=== PATIENT | female | born 1945 | race Caucasian/White ===

== ENCOUNTER 2016-03-12 08:57 | Emergency (ER) | payer MEDICARE, BC ==
[2016-03-12 09:14] VITALS: BP 123/56
--- NOTE | 2016-03-12 09:43 | UC ---
Back Pain HPI - HPI Summary HPI Summary: CHRONIC LOWER BACK PAIN X 40 YEARS GETTING WORSE OVER THE PAST 2 WEEKS, NO KNOWN INJURY, NO RADIATION OF THE PAIN , INCREASE PAIN WITH MOVEMENT NO NAUSEA, VOMITING, NO URINARY SX. - History of Current Complaint Chief Complaint: UCBackPain Stated Complaint: BACK PAIN Time Seen by Provider: 03/12/16 09:12 Hx Obtained From: Patient Hx Last Menstrual Period: age 51 ?: No Onset/Duration: Gradual Onset, Lasting Weeks, Still Present, Worse Since - PAST 2 WEEKS Timing: Constant Severity Initially: Severe Severity Currently: Severe Back Pain: Is Discrete @ - LOWER BACK Character: Aching, Throbbing, Spasmodic, Stiffness Aggravating: Movement, Lifting, Bending, Walking, Cough Alleviating: Nothing Associated Signs And Symptoms: Negative: Swelling, Redness, Bruising, Fever, Weakness, Numbness, Tingling, Abdominal Pain, Flank Pain, Bladder Incontinence, Bowel Incontinence, Weight Loss - Allergies/Home Medications Allergies/Adverse Reactions: Allergies Allergy/AdvReac Type Severity Reaction Status Date / Time Adhesive Tape Allergy RED RASH Verified 03/12/16 09:14 AVOCODOS Allergy Vomiting Uncoded 03/12/16 09:14 BROCCOLI Allergy Vomiting Uncoded 03/12/16 09:14 CANTALOUPE Allergy Vomiting Uncoded 03/12/16 09:14 EGGPLANT Allergy Vomiting Uncoded 03/12/16 09:14 PET DANDER Allergy BREATHING, Uncoded 03/12/16 09:14 SINUS, RUNNY EYES, ASTHMA SX raw honey Allergy VIOLENT Uncoded 03/12/16 09:14 VOMITING, CRAMPS, SENSITIVE TO ANESTHESIA Allergy SENSITIVE Uncoded 03/12/16 09:14 TO AMOUNT SHELLFISH Allergy VIOLENT Uncoded 03/12/16 09:14 VOMITING Home Medications: Home Medications Turmeric (Curcuma Longa) [Turmeric] 450 mg PO DAILY 03/12/16 [History Confirmed 03/12/16] PMH/Surg Hx/FS Hx/Imm Hx Endocrine History Of: Reports: Diabetes - TYPE 2, Thyroid Disease Cardiovascular History Of: Reports: Cardiac Disorders - heart murmur, Hypertension - CONTROL WITH MEDS Denies: Congestive Heart Failure Respiratory History Of: Reports: Asthma - allergy induced (PET DANDER) GI/ History Of: Denies: Renal Disease Psychological History Of: Reports: Anxiety - HX, Depression - HX-AFTER MOTHER IN 2011 - Surgical History Surgical History: Yes Surgery Procedure, Year, and Place: 1971 TONSILLECTOMY,. 1976, 1978-[place] [place] [facility] [place]OM[place]- LEFT, [facility]. 2012-PARATHYROIDECTOMY, [facility]. 2013 REPAIR OF "BOTCHED" SURGERY ON PARATHYROID, (THYROPLASTY IMPLANT TYPE 1[place] [facility] [place] Family History Known Family History: Positive: Diabetes - Social History Alcohol Use: Rare Substance Use Type: None Smoking Status (MU): Former Smoker Amount Used/How Often: 0.5-.75 PPD 25-30 YEARS When Did the Patient Quit Smoking/Using Tobacco: 2002 Review of Systems Constitutional: Negative Skin: Negative Eyes: Negative ENT: Negative Respiratory: Negative Cardiovascular: Negative Gastrointestinal: Negative Musculoskeletal: Myalgia All Other Systems Reviewed And Are Negative: Yes Physical Exam Triage Information Reviewed: Yes Appearance: Well-Appearing, No Pain Distress, Well-Nourished Vital Signs: Initial Vital Signs Temp 98.5 F 03/12/16 09:06 Pulse 64 03/12/16 09:06 Resp 18 03/12/16 09:06 BP 123/56 03/12/16 09:06 Vital Signs Reviewed: Yes Eyes: Positive: Conjunctiva Clear ENT: Positive: Normal ENT inspection, Hearing grossly normal, Pharynx normal Neck: Positive: Supple, Nontender, No Lymphadenopathy Respiratory: Positive: Chest non-tender, Lungs clear, Normal breath sounds Cardiovascular: Positive: RRR, No Murmur, Pulses Normal Abdominal Exam: Normal Abdomen Description: Positive: Soft. Negative: CVA Tenderness (R), CVA Tenderness (L), Distended, Guarding Bowel Sounds: Positive: Present Musculoskeletal: Positive: Other: - LOWER BACK PAIN : NO SWELLING, NO ERYTHEMA, NO TENDERNESS, LIMITED R/O ON FLEXION , SEVER PAIN WITH FLEXION, GOOD STRENGTH, Back Pain Course/Dx - Course Course Of Treatment: PT. IS TAKING NAPOXYN WITH MINIMAL HELP. DOEST NOT WANT ANY PAIN MEDS OR ANY MUSCLE RELAXANT. PT. WANT A REFERRAL TO [facility] FOR EVAL. - Differential Dx/Diagnosis Provider Diagnoses: LOWER BACK PAIN Discharge - Discharge Plan Condition: Stable Disposition: HOME Patient Education Materials: Chronic Back Pain (ED), Lower Back Exercises (ED) Referrals: Pratik Palmer MD [Medical Doctor] - As Soon As Possible Pranav Armenta MD [Primary Care Provider] -
== END 2016-03-12 10:15 | disposition home or self-care (01) ==
LOC: UCCORT 08:57
DX: M54.5 Low back pain (principal); E11.9 Type 2 diabetes mellitus without complications; E07.9 Disorder of thyroid, unspecified; J45.909 Unspecified asthma, uncomplicated; F41.9 Anxiety disorder, unspecified; Z87.891 Personal history of nicotine dependence; Z13.220 Encounter for screening for lipoid disorders
CPT/HCPCS: 36415; 80053; 80061; 83036; 83721; 84443; 85027; 87086; 99212; G0463

== ENCOUNTER 2016-06-30 07:37 | Emergency (ER) | payer MEDICARE, BC ==
[2016-06-30 07:44] VITALS: BP 146/63
--- NOTE | 2016-06-30 08:16 | UC ---
Respiratory Complaint HPI - HPI Summary HPI Summary: 71 YO FEMALE WITH DM PRESENTS WITH A THREE DAY HX OF "WHEEZING" NO F/C NO PRODUCTIVE COUGH NO GOMEZ OR MYALGIAS NO RUNNY NOSE HAS CHEST PRESSURE RECENTLY FLEW BACK FROM [place] - History of Current Complaint Chief Complaint: UCRespiratory Stated Complaint: COUGH,WHEEZING Time Seen by Provider: 06/30/16 08:06 Hx Obtained From: Patient Hx Last Menstrual Period: age 51 Onset/Duration: Gradual Onset, Lasting Days - 3 Severity Initially: Mild Severity Currently: Moderate Pain Intensity: 0 Pain Scale Used: 0-10 Numeric Character: Cough: Nonproductive Aggravating Factors: Nothing Alleviating Factors: Nothing Associated Signs And Symptoms: Positive: Wheezing Related History: Similar Episode/Dx as: - Allergies/Home Medications Allergies/Adverse Reactions: Allergies Allergy/AdvReac Type Severity Reaction Status Date / Time Adhesive Tape Allergy RED RASH Verified 06/30/16 07:44 AVOCODOS Allergy Vomiting Uncoded 06/30/16 07:44 BROCCOLI Allergy Vomiting Uncoded 06/30/16 07:44 CANTALOUPE Allergy Vomiting Uncoded 06/30/16 07:44 EGGPLANT Allergy Vomiting Uncoded 06/30/16 07:44 PET DANDER Allergy BREATHING, Uncoded 06/30/16 07:44 SINUS, RUNNY EYES, ASTHMA SX raw honey Allergy VIOLENT Uncoded 06/30/16 07:44 VOMITING, CRAMPS, SENSITIVE TO ANESTHESIA Allergy SENSITIVE Uncoded 06/30/16 07:44 TO AMOUNT SHELLFISH Allergy VIOLENT Uncoded 06/30/16 07:44 VOMITING PMH/Surg Hx/FS Hx/Imm Hx Endocrine History Of: Reports: Diabetes - TYPE 2, Thyroid Disease Cardiovascular History Of: Reports: Cardiac Disorders - heart murmur, Hypertension - CONTROL WITH MEDS Denies: Congestive Heart Failure Respiratory History Of: Reports: Asthma - allergy induced (PET DANDER) GI/ History Of: Denies: Renal Disease Psychological History Of: Reports: Anxiety - HX, Depression - HX-AFTER MOTHER IN 2011 - Surgical History Surgical History: Yes Surgery Procedure, Year, and Place: 1971 TONSILLECTOMY,. 1976, 1978-2 C- [place] [place] 2007 DEVIATED SEPTUM REPAIR, [facility] [place] 2008-BUNIONECTOMY- LEFT, [facility]. 2012-PARATHYROIDECTOMY, [facility]. 2013 REPAIR OF "BOTCHED" SURGERY ON PARATHYROID, (THYROPLASTY IMPLANT TYPE 1), [facility] [place] - Family History Known Family History: Positive: Hypertension, Diabetes - Social History Alcohol Use: None Substance Use Type: None Smoking Status (MU): Former Smoker Amount Used/How Often: 0.5-.75 PPD 25-30 YEARS When Did the Patient Quit Smoking/Using Tobacco: 2002 Review of Systems Constitutional: Negative Skin: Negative Eyes: Negative ENT: Negative Respiratory: Cough Cardiovascular: Chest Pain - "PRESSURE" Gastrointestinal: Negative Genitourinary: Negative Motor: Negative Neurovascular: Negative Musculoskeletal: Negative Neurological: Negative Psychological: Negative All Other Systems Reviewed And Are Negative: Yes Physical Exam Triage Information Reviewed: Yes Appearance: Well-Appearing, No Pain Distress, Well-Nourished Vital Signs: Initial Vital Signs Temp 98.8 F 06/30/16 07:39 Pulse 71 06/30/16 07:39 Resp 18 06/30/16 07:39 BP 146/63 06/30/16 07:39 Pulse Ox 98 06/30/16 07:39 Eye Exam: Normal Eyes: Positive: Conjunctiva Clear ENT: Positive: Hearing grossly normal, TMs normal. Negative: Nasal congestion, Nasal drainage, Tonsillar exudate, Trismus, Muffled/hoarse voice Neck: Positive: Supple, Nontender, No Lymphadenopathy Respiratory: Positive: Lungs clear, Normal breath sounds, No respiratory distress, No accessory muscle use Cardiovascular: Positive: RRR, No Murmur. Negative: Tachycardia, Bradycardia Musculoskeletal: Positive: ROM Intact, No Edema Neurological: Positive: Alert Skin Exam: Normal UC Diagnostic Evaluation - Laboratory O2 Sat by Pulse Oximetry: 98 - NORMAL/NOT HYPOXIC - Radiology Xray Interpretation: No Acute Changes Radiology Interpretation Completed By: Radiologist - EKG Cardiac Rate: NL Cardiac Rhythm: Sinus: Normal Ectopy: None ST Segment: Normal Respiratory Course/Dx - Differential Dx/Diagnosis Provider Diagnoses: acute bronchitis Discharge - Discharge Plan Condition: Stable Disposition: HOME Prescriptions: Albuterol HFA INHALER* [Ventolin HFA Inhaler*] 2 puff INH QID #1 mdi Amoxicillin (*) [Amoxicillin 875 MG (*)] 875 mg PO BID #20 tab Patient Education Materials: Acute Bronchitis (ED) Referrals: Dominique Bernabe MD [Primary Care Provider] - Additional Instructions: recheck for new or worsening symptoms get rechecked especially for chest pain or shortness of breath recheck in 3-4 days if not better
--- NOTE | 2016-06-30 09:01 | RAD ---
INDICATION: Wheezing, shortness of breath, cough. Symptoms began after traveling 5 days ago. COMPARISON: May 03, [address] February 28, 2015 chest radiograph. TECHNIQUE: Dual energy PA and routine lateral views of the chest were obtained. REPORT: Elevated lung volumes with increased AP thoracic diameter. Minimal prominence of the interstitial markings without change. No alveolar consolidation, focal pulmonary lesion, pleural effusion, pneumothorax. The heart, pulmonary vasculature, and mediastinal contours are unremarkable. IMPRESSION: Stigmata of probable chronic obstructive pulmonary disease. No acute cardiopulmonary process evident.
== END 2016-06-30 09:20 | disposition home or self-care (01) ==
LOC: UCCORT 07:37
DX: J20.9 Acute bronchitis, unspecified (principal); I10 Essential (primary) hypertension; R01.1 Cardiac murmur, unspecified; J45.909 Unspecified asthma, uncomplicated; F41.9 Anxiety disorder, unspecified; E11.9 Type 2 diabetes mellitus without complications; Z79.4 Long term (current) use of insulin; E07.9 Disorder of thyroid, unspecified; Z87.891 Personal history of nicotine dependence; Z91.09 Other allergy status, other than to drugs and biological substances; Z91.018 Allergy to other foods; Z88.4 Allergy status to anesthetic agent; Z91.013 Allergy to seafood; Z88.8 Allergy status to other drugs, medicaments and biological substances; Z91.048 Other nonmedicinal substance allergy status
CPT/HCPCS: 71020; 93005; 99212; G0463

== ENCOUNTER 2016-07-20 15:23 | Emergency (ER) | payer BC, MEDICARE ==
[2016-07-20 17:17] VITALS: BP 135/58
--- NOTE | 2016-07-20 17:51 | UC ---
Respiratory Complaint HPI - HPI Summary HPI Summary: COUGH TWO WEEKS AGO, TOOK AMOXICILLIN AND SYMPTOMS IMPROVED, THREE DAYS AGO ( AFTER FINISHING ANTIBIOTIC REGIMENT) SYMPTOMS RETURNED. NO FEVERS (BUT DOES NOT CHECK TEMPERATURES). NO ABDOMINAL PAIN. NO RASHES. - History of Current Complaint Chief Complaint: UCGeneralIllness Stated Complaint: COUGH Time Seen by Provider: 07/20/16 17:26 Hx Obtained From: Patient Hx Last Menstrual Period: age 51 Onset/Duration: Gradual Onset, Lasting Weeks, Still Present Timing: Constant Severity Initially: Mild Severity Currently: Moderate Pain Intensity: 4 Pain Scale Used: 0-10 Numeric Character: Cough: Nonproductive Aggravating Factors: Recumbent Position Associated Signs And Symptoms: Positive: URI, Hoarseness. Negative: Fever, Chills, Pleuritic Chest Pain, Calf Pain, Calf Swelling - Risk Factors Pulmonary Embolism Risk Factors: Negative Cardiac Risk Factors: Negative Pseudomonas Risk Factors: Negative Tuberculosis Risk Factors: Negative - Allergies/Home Medications Allergies/Adverse Reactions: Allergies Allergy/AdvReac Type Severity Reaction Status Date / Time Adhesive Tape Allergy RED RASH Verified 07/20/16 17:17 AVOCODOS Allergy Vomiting Uncoded 07/20/16 17:17 BROCCOLI Allergy Vomiting Uncoded 07/20/16 17:17 CANTALOUPE Allergy Vomiting Uncoded 07/20/16 17:17 EGGPLANT Allergy Vomiting Uncoded 07/20/16 17:17 PET DANDER Allergy BREATHING, Uncoded 07/20/16 17:17 SINUS, RUNNY EYES, ASTHMA SX raw honey Allergy VIOLENT Uncoded 07/20/16 17:17 VOMITING, CRAMPS, SENSITIVE TO ANESTHESIA Allergy SENSITIVE Uncoded 07/20/16 17:17 TO AMOUNT SHELLFISH Allergy VIOLENT Uncoded 07/20/16 17:17 VOMITING PMH/Surg Hx/FS Hx/Imm Hx Previously Healthy: Yes Endocrine History Of: Reports: Diabetes - TYPE 2, Thyroid Disease Cardiovascular History Of: Reports: Cardiac Disorders - heart murmur, Hypertension - CONTROL WITH MEDS Denies: Congestive Heart Failure Respiratory History Of: Reports: Asthma - allergy induced (PET DANDER) GI/ History Of: Denies: Renal Disease Psychological History Of: Reports: Anxiety - HX, Depression - HX-AFTER MOTHER IN 2011 - Surgical History Surgical History: Yes Surgery Procedure, Year, and Place: 1970 TONSILLECTOMY,. 1976, 1979-[place] [place] [facility] [place]- LEFT, [facility]. 2012-[facility]OMY, [facility]. 2013 REPAIR OF "BOTCHED" SURGERY ON PAR[place]ROID, [place]THYROPLASTY IMPLANT TYPE 1[place] [facility] [place] Family History Known Family History: Positive: Hypertension, Diabetes - Social History Occupation: Retired Lives: With Family Alcohol Use: None Substance Use Type: None Smoking Status (MU): Former Smoker Amount Used/How Often: 0.5-.75 PPD 25-30 YEARS When Did the Patient Quit Smoking/Using Tobacco: 2002 Review of Systems Constitutional: Fatigue Skin: Negative Eyes: Negative ENT: Ear Ache - EAR FULLNESS Respiratory: Cough Cardiovascular: Negative Gastrointestinal: Negative Genitourinary: Negative Motor: Negative Neurovascular: Negative Musculoskeletal: Negative Neurological: Negative Psychological: Negative All Other Systems Reviewed And Are Negative: Yes Physical Exam Triage Information Reviewed: Yes Appearance: No Pain Distress, Well-Nourished, Ill-Appearing Vital Signs: Initial Vital Signs Temp 99.6 F 07/20/16 17:12 Pulse 67 07/20/16 17:12 Resp 16 07/20/16 17:12 BP 135/58 07/20/16 17:12 Pulse Ox 95 07/20/16 17:12 Vital Signs Reviewed: Yes Eye Exam: Normal ENT: Positive: Hearing grossly normal, Pharynx normal, TM bulging, TM dull Dental Exam: Normal Neck exam: Normal Neck: Positive: Supple, Nontender, No Lymphadenopathy Respiratory Exam: Other - COUGH Respiratory: Positive: Chest non-tender, Lungs clear, Normal breath sounds, No respiratory distress, No accessory muscle use Cardiovascular Exam: Normal Cardiovascular: Positive: RRR, No Murmur, Pulses Normal Abdominal Exam: Normal Musculoskeletal Exam: Normal Musculoskeletal: Positive: Strength Intact, ROM Intact Neurological Exam: Normal Psychological Exam: Normal Skin Exam: Normal Diagnostic Evaluation - Laboratory O2 Sat by Pulse Oximetry: 95 Respiratory Course/Dx - Differential Dx/Diagnosis Differential Diagnosis/HQI/PQRI: Asthma, Bronchitis, CHF, Influenza, Pulmonary Embolism, Sinusitis Provider Diagnoses: SINUSITS; BRONCHITIS Discharge - Discharge Plan Condition: Stable Disposition: HOME Prescriptions: Benzonatate CAP* [Tessalon 100 MG CAP*] 100 mg PO TID PRN #15 cap PRN Reason: Cough DOXYcycline CAP(*) [DOXYcycline 100MG CAP(*)] 100 mg PO BID #20 cap Patient Education Materials: Sinusitis (ED), Acute Bronchitis (ED) Referrals: Dominique Bernabe MD [Primary Care Provider] -
== END 2016-07-20 17:46 | disposition home or self-care (01) ==
LOC: UCCORT 15:23
DX: J32.9 Chronic sinusitis, unspecified (principal); J40 Bronchitis, not specified as acute or chronic; E11.8 Type 2 diabetes mellitus with unspecified complications; I10 Essential (primary) hypertension; R01.1 Cardiac murmur, unspecified; F41.8 Other specified anxiety disorders; Z87.891 Personal history of nicotine dependence
CPT/HCPCS: 99212; G0463

== ENCOUNTER 2019-04-16 10:22 | Emergency (ER) | payer MEDICARE, BC ==
--- OUTSIDE RECORDS SUMMARY | 2019-04-16 10:31 | XMS REPORT ---
:1945 Author Organization [facility] Address [address] [place] [address] Care Team Providers Name Role Phone Maritza Rueda Unavailable Unavailable PROBLEMS Type Condition ICD9-CM Code QWD22-AM Code Onset Condition SNOMED Code Dates Status Problem Hepatomegaly, R16.0 Active 44466218 not elsewhere classified Problem Unspecified K74.60 Active 81160837 cirrhosis of liver Problem Candidiasis of B37.3 Active 38222835 vulva and vagina Problem Leiomyoma of D25.9 Active 97618779 uterus, unspecified Problem Frequency of R35.0 Active 840253169 micturition Problem Pelvic and R10.2 Active 110435160 perineal pain ALLERGIES No Information ENCOUNTERS Encounter Location Date Diagnosis [facility] [address] Oct, OBGYN [place], [place] [id number] [facility] 103 Oct, Encounter for OBGYN [facility], gynecological examination [place] [id number] (general) (routine) without abnormal findings Z01.419 ; Leiomyoma of uterus, unspecified D25.9 ; Encounter for screening mammogram for malignant neoplasm of breast Z12.31 ; Unspecified cirrhosis of liver K74.60 and Hepatomegaly, not elsewhere classified R16.0 [facility] 103 Oct, Leiomyoma of uterus, OBGYN [facility], unspecified D25.9 [place] [id number] [facility] 103 Aug, Encounter for screening OBGYN [facility], mammogram for malignant [place] [id number] neoplasm of breast Z12.31 [facility] 103 Mar, OBGYN [place], [place] [id number] [facility] 103 Aug, Encounter for screening OBGYN [facility], mammogram for malignant [place] [id number] neoplasm of breast Z12.31 and Leiomyoma of uterus, unspecified D25.9 [facility] 103 Aug, Leiomyoma of uterus, OBGYN [facility], unspecified D25.9 [place] [id number] [facility] 103 Nov, OBGYN [place] [id number] [facility] 103 Nov, OBGYN [place] [id number] [facility] 103 Nov, Leiomyoma of uterus, OBGYN [facility], unspecified D25.9 and [place] [id number] Pelvic and perineal pain R10.2 [facility] 103 Nov, Pelvic and perineal pain OBGYN [facility], R10.2 and Leiomyoma of [place] [id number] uterus, unspecified D25.9 [facility] 103 Oct, OBGYN [place] [id number] [facility] 103 Aug, Encounter for OBGYN [facility], gynecological examination [place] [id number] (general) (routine) with abnormal findings Z01.411 ; Encounter for screening mammogram for malignant neoplasm of breast Z12.31 ; Encounter for screening for malignant neoplasm of colon Z12.11 and Pelvic and perineal pain R10.2 [facility] 103 Jan, OBGYN [place] [id number] [facility] 103 Oct, AB FINDINGS-BREAST NEC OBGYN [facility], 793.89 [place] [id number] [facility] 103 Aug, ROUTINE TAX REPRESENTATIVE EXAMINATION OBGYN [facility], V72.31 and SCREEN [place] [id number] MAMMOGRAM NEC V76.12 [facility] 103 Aug, ROUTINE TAX REPRESENTATIVE EXAMINATION OBGYN [facility], V72.31 ; SCREEN MALIG [place] [id number] NEOP-COLON V76.51 ; SCREEN MAMMOGRAM NEC V76.12 and Candidal vulvovaginitis 112.1 [facility] 103 Aug, OBGYN [place] [id number] [facility] 103 Aug, OBGYN [place] [id number] [facility] 103 Aug, Uterine fibroma 218.9 OBGYN [place] [id number] [facility] 103 Aug, PELVIC PAIN 625.9 and OBGYN [facility], UTERINE FIBROIDS-UNSPEC [place] [id number] 218.9 [facility] 103 Aug, ROUTINE TAX REPRESENTATIVE EXAMINATION OBGYN [facility], V72.31 ; SCREEN MAL [place] [id number] NEOP-RECTUM V76.41 ; SCREEN MAMMOGRAM NEC V76.12 ; PAP SMEAR W/O TAX REPRESENTATIVE EXAM V76.2 and PELVIC PAIN 625.9 [facility] 103 Mar, OBGYN [place] [id number] [facility] 103 Mar, Urinary frequency 788.41 OBGYN [place] [id number] [facility] 103 Mar, Candidal vulvovaginitis OBGYN [facility], 112.1 and Urinary [place] [id number] frequency 788.41 [facility] 103 Jan, OBGYN [place], [place] [id number] [facility] 103 Aug, ROUTINE TAX REPRESENTATIVE EXAMINATION OBGYN [facility], V72.31 [place] [id number] [facility] 103 Aug, OBGYN [place] [id number] [facility] 103 Aug, ROUTINE TAX REPRESENTATIVE EXAMINATION OBGYN [facility], V72.31 [place] [id number] [facility] 103 July, BENIGN ISABEL SKIN TRUNK OBGYN [facility], 216.5 and Actinic [place] [id number] keratosis 702.0 [facility] 103 July, BENIGN ISABEL SKIN TRUNK OBGYN [facility], 216.5 and Other seborrheic [place] [id number] keratosis 702.19 [facility] 103 Jun, OBGYN [place], [place] [id number] [facility] 103 Jun, BENIGN ISABEL SKIN TRUNK OBGYN [facility], 216.5 ; Benign neoplasm of [place] [id number] skin of shoulder 216.6 and Other seborrheic keratosis 702.19 [facility] 103 Aug, ROUTINE TAX REPRESENTATIVE EXAMINATION OBGYN [facility], V72.31 [place] [id number] [facility] 103 Mar, [place]BG[place] [id number] [facility] 103 Jan, Well Adult exam V 70.0 ; OBGYN [facility], ROUTINE TAX REPRESENTATIVE EXAMINATION [place] [id number] V72.31 ; Menopausal symptoms 627.2 and Enlargement of thyroid 240.9 [facility] 103 Mar, OBGYN [place] [id number] [facility] 103 Mar, [place]BG[place] [id number] [facility] 103 Mar, [place] [id number] [facility] 103 Jan, [place] [id number] [facility] 103 Jan, ROUTINE TAX REPRESENTATIVE EXAMINATION [facility] V72.31 and Pap Smear to [place] [id number] confirm findings of recent normal smear following initial abnormal smear V72.32 [facility] 103 Aug, [place] [id number] [facility] 103 Aug, [place] [id number] [facility] 103 Aug, PAP SMEAR ([facility]) 795.[address] [place], [place] [id number] [facility] 103 Mar, PAP SMEAR ([facility]) 795.02 [place] [id number] [facility] 103 Mar, PAP SMEAR ([facility]) 795.[address] [place], [place] [id number] [facility] 103 Jan, Well Adult exam V 70.0 [facility] ROUTINE TAX REPRESENTATIVE EXAMINATION [place] [id number] V72.31 IMMUNIZATIONS No Known Immunizations SOCIAL HISTORY Never Assessed REASON FOR REFERRAL FUNCTIONAL STATUS PLAN OF CARE VITAL SIGNS MEDICATIONS Unknown Medications PROCEDURES No Known procedures RESULTS No Results REASON FOR VISIT OCT 2019, annual Insurance Providers [facility] Member Patient Patient Patient Patient Patient Subscriber Subscriber Subscriber Group Insurance Plan Plan Plan Plan ID Relationship Address Phone Name Date of ID Name Date of No Type Insurance Insurance Insurance Coverage to Subscriber Address Phone Name Dates [employer] [address] Excell[employer] self [place] [id number] Blue [id number] [address] 3 Cross/Blue [place] Cross/Blue Shield [id number] Shield Blue Cross [address] Blue Cross self [place] [id number] Blue [id number] 89 Blue [place] 8 2 Shield [place] [facility] [id number] Medicare [phone] Medicare self [place] [id number] [facility] [address] MEDICAL (GENERAL) HISTORY Type Description Date Medical History Arthritis in neck. 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
--- OUTSIDE RECORDS SUMMARY | 2019-04-16 10:32 | XMS REPORT | Continuity of Care Document ---
:1945 External Reference #:[id number] Author Name Briana Pinto MD Address [address] [place] [address] Care Team Providers Name Role Phone Dominique Bernabe MD - Internal Medicine Care Team Information Setup Technician [facility] Physical Therapy/Harper Levisadi Care Team Information Setup Technician Savanna Herman, LAC - Women's Health Care Team Information Setup Technician Endy Hooks MD Care Team Information Setup Technician [phone] Briana Pinto MD - Internal Care Team Information Setup Technician Medicine Problems Active Problems Provider Date Primary localized osteoarthrosis of multiple Kathi Son MD Onset: 2014 sites Low back pain Kathi Son MD Onset: 05/09/2014 Hypothyroidism Dominique Bernabe MD Onset: 07/05/2016 Type 2 diabetes mellitus Dmoinique Bernabe MD Onset: 07/05/2016 Essential hypertension Dominique Bernabe MD Onset: 07/05/2016 Mixed hyperlipidemia Dominique Bernabe MD Onset: 07/05/2016 Nonalcoholic steatohepatitis Dominique Bernabe MD Onset: 07/05/2016 Thrombocytopenic disorder Dominique Bernabe MD Onset: 01/13/2017 Spinal stenosis of lumbar region Dominique Bernabe MD Onset: 05/23/2017 Shoulder joint pain Dominique Bernabe MD Onset: 05/23/2017 Cirrhosis - non-alcoholic Jimenez White MD Onset: 07/09/2017 Gastro-esophageal reflux disease with Jimenez White MD Onset: 07/09/2017 esophagitis Benign paroxysmal positional vertigo Boal, Emely, DO Onset: 04/29/2018 Aortic valve disorder Dominique Bernabe MD Onset: 07/15/2018 Vitamin D deficiency Emely Gary DO Onset: 01/01/2019 Social History Type Date Description Comments Sex Unknown Cigarette Use Pack Years - 25 Tobacco Use Start: Unknown End: Former Cigarette Smoker Unknown Smoking Status Reviewed: 02/22/19 Former Cigarette Smoker Smokeless Tobacco Never Used Smokeless Tobacco ETOH Use Denies alcohol use Recreational Drug Use Denies Drug Use Tobacco Use Start: Unknown End: Patient is a former smoker QUIT 2001 Unknown Allergies, Adverse Reactions, Alerts Active Allergies Reaction Severity Comments Date NKDA 10/08/2012 Broccoli 10/06/2012 Cantelope 10/06/2012 Raw Honey 10/06/2012 Eggplant 10/06/2012 Clams 10/06/2012 Scallops 10/06/2012 Animals Difficulty breathing 07/23/2017 Medications Active Medications SIG Qnty Indications Ordering Date Provider Freestyle Check blood sugar 1units E11.9 Dominique Bernabe, 10/30/2017 Rosa/Sensor/Flash fasting, pre meal MD Monitoring System and 2 hours post prandial Misc Crestor 1 tab by mouth every 90tabs Dominique Bernabe, 06/10/2017 5mg Tablets other day Accu-Chek Compact glucometer. Check 1units Dominique Bernabe, 05/23/2017 Plus Care Kit fasting blood sugar MD Kit and post prandial blood sugar Amlodipine/Olmesarta take 1 tablet daily 90tabs Dominique Bernabe, 10/15/2016 n Medoxomil 5-40mg Tablets Freestyle Lite Test test blood sugar 4x 150units Gagen, 12/21/2015 a day Evleina, Strips MS, [employer], CNM Vascepa take 1 capsules 180caps Dominique Bernabe, 12/21/2015 1gm Capsules twice a day BD Pen [place] use 1x/day with 100units E11.9 Brian, 07/03/2015 Short/Ultrafine/31G insulin pen as MD Serene, X 5/16" directed PHD 31G X 8 mm Misc Lantus Solostar inject 74 units 45units E11.9 Dominique Bernabe, 07/03/2015 under the skin once 100Unit/ML Solution daily Pen-Inject Novolog Flexpen inject 46 units 30units E11.9 Millie, 07/03/2015 before meals MD Briana 100Unit/ML Solution subcutaneously two Pen-Inject times a day Accu-Chek Compact test fasting blood 102units Eva Mike, 05/03/2015 Plus sugar every day M.D. Strips Apple Cider Vinegar 1 by mouth on days Unknown that pt does not 188mg Capsules take omeprazole. Beet Pulp 1 capsule by mouth Unknown once a day Levothyroxine Sodium Take 1 Tablet Daily 90tabs Dominique Bernabe, 125mcg Tablets Advair Diskus 1 inhalation daily 60units Florecita, Dominique, as needed 250-50mcg/Dose Aerosol Ventolin HFA 1-2 puffs every 4-6 8gm FlorecitaSunil jaimesa, hours as needed 108(90Base) mcg/Act Aerosol Vitamin E 1 by mouth every day Unknown 400Unit Capsules Melatonin one capsule by mouth Unknown 5mg once at at bedtime Capsules Cinnamon plus chromium Unknown 500mg Tablets Vitamin D 1 po qd 60caps Unknown 1000Unit Capsules Benadryl 1/2 po qd Unknown 25mg Capsules Vitamin B-12 unsure dose daily Unknown Tablets Omeprazole 1 by mouth every 3rd 90caps Sunil Bernabea, 40mg day - Capsules Immunizations CPT Code Status Date Vaccine Lot # [id number] Given 11/24/2017 Influenza High Dose [id number] Given 10/30/2017 Pneumococcal Conjugate Vaccine 13 Valent For [id number] Intramuscular Use Vital Signs Date Vital Result Comment 02/22/2019 11:25am BP Systolic 138 mmHg BP Diastolic 62 mmHg Body Temperature 98.3 F Heart Rate 72 /min Respiratory Rate 18 /min Height 62.5 inches 5'2.50", As per patient Weight 186.00 lb BMI (Body Mass Index) 33.5 kg/m2 BSA (Body Surface Area) 1.86 m2 Mccaulley body weight in kilograms 51 kg O2 % BldC Oximetry 96 % 02/08/2019 9:55am BP Systolic Sitting Left Arm 132 mmHg BP Diastolic Sitting Left Arm 64 mmHg Body Temperature 98.0 F Heart Rate 65 /min Respiratory Rate 18 /min Height 62.5 inches 5'2.50", As per patient Weight 186.00 lb BMI (Body Mass Index) 33.5 kg/m2 BSA (Body Surface Area) 1.86 m2 Mccaulley body weight in kilograms 51 kg O2 % BldC Oximetry 98 % Ra Results Test Acquired Date Facility Test Result H/L Range Note Ua RFX Micro & 02/22/2019 [facility] Urine Color Yellow Yellow 1 Culture II [address] [place] [address] [phone] Urine Clarity Clear Clear Urine Glucose - Dipstick 70 mg/dL Negative Urine Bilirubin - Dipstick NEGATIVE Negative Urine Ketone NEGATIVE mg/dL Negative Urine Specific [place] 1.014 Normal 1.010-1.030 Urine Blood NEGATIVE Negative Urine PH 5.5 Low 6.5-7.5 Urine Protein - Dipstick TRACE mg/dL Negative Urine Urobilinogen - Dipstick < 2.0 mg/dL < 2.0 Urine Nitrite - Dipstick NEGATIVE Negative Urine Leuk Esterase SMALL Abnormal Negative Urine RBC 0-2 rbc/hpf 0-2 Urine WBC 21-30 wbc/hpf 0-5 Urine Epithelial Cells FEW /lpf None Seen Urine Bacteria FEW None Seen Urine Hyaline Cast 6-10 #/lpf None Seen Urine Mucus SMALL None Seen Urine Culture 02/22/2019 [facility] Urine Culture NO GROWTH: [address] FINAL <[place] [address] NOTE> [phone] Culture If 02/22/2019 [facility] Culture If CULTURE TO [address] Indicated FOLLO <[place] [address] Comment NOTE> [phone] Urine Dipstick 02/22/2019 [facility] Ua Color dark yellow Yellow Ua Clarity cloudy Clear Ua Leuko +- Negative Ua Nitrite neg Negative Ua Urobilinogen neg Low 0.2 - 1.0 E.U./dL Ua Protein +- Negative Ua PH 6.0 Low 6.5-7.5 Ua Blood neg Negative Ua Specific [place] 1.020 1.010-1.030 Ua Ketones neg Negative Ua Bilirubin neg Negative Ua Glucose neg Negative Comprehensive Metabolic 02/02/2019 [facility] Glucose 154 mg/dL High 74-106 [address] [place] [address] [phone] BUN 11 mg/dL Normal 7-18 Creatinine 0.9 mg/dL Normal 0.6-1.3 Glom Filtration Rate, Estimate >60 mL/min >60 If >60 mL/min >60 5 BUN/Creat 12.2 ratio Sodium 139 mmol/L Normal 136-145 Potassium 3.8 mmol/L Normal 3.5-5.1 Chloride 106 mmol/L Normal 98-107 Carbon Dioxide 27 mmol/L Normal 21-32 Anion Gap 6 mEq/L Low 8-16 Calcium 9.0 mg/dL Normal 8.5-10.1 Total Protein 7.5 g/dL Normal 6.4-8.2 Albumin 3.6 g/dL Normal 3.4-5.0 Globulin 3.9 g/dL Normal 1.9-4.3 Alb/Glob 0.9 ratio Bilirubin,Total 0.8 mg/dL Normal 0.2-1.0 Sgot/Ast 38 U/L High 15-37 SGPT/Alt 45 U/L Normal 12-78 Alkaline Phosphatase 106 U/L Normal 45-117 Glycohemoglobin 02/02/2019 [facility] Glycohemoglobin 8.4 % High 4.2-6.[address] (A1c) [place], [place] [id number] [phone] eAG 194 mg/dL LDL Cholesterol 02/02/2019 [facility] Cholesterol 249 mg/dL High <200 [address] [place] [address] [phone] Triglycerides 144 mg/dL <150 8 HDL Cholesterol 49 mg/dL >40 9 LDL-Cholesterol 171 mg/dL < 100 10 Laboratory test 02/02/2019 [facility] Thyroid 2.97 Normal 0.30-4.[address] Stim uIU/[place] [address] Hormone [phone] Free T4 1.25 ng/dL Normal 0.76-1.46 Slide Review 12/22/2018 [facility] Slide Review (SEE 11, [address] NOTE) [place] [address] [phone] Laboratory test 12/22/2018 [facility] Ferritin 85 ng/mL Normal 8-[address] [place], [place] [id number] [phone] Iron-Tibc-%Sat 12/22/2018 [facility] Serum Iron 82 g/dL Normal 50-[address] [place], [place] [id number] [phone] Total Iron Binding Capacity 311 g/dL Normal 250-450 Transferrin %Saturation 26 % Normal 12-57 Laboratory test 12/22/2018 [facility] Gamma Glutamyl 280 U/L High 5-85 [address] Transpeptidase [place], [place] [address] [phone] LDH 190 U/L Normal 84-246 14 Vitamin D,25-Hydroxy 22.3 ng/mL Low 30.0-100.0 [address] Gary Slide on file in <SEE NOTE> 16 Comprehensive Metabolic 12/22/2018 [facility] Glucose 260 mg/dL High 74-[address] [place], [place] [address] [phone] BUN 9 mg/dL Normal 7-18 Creatinine 0.8 mg/dL Normal 0.6-1.3 Glom Filtration Rate, Estimate >60 mL/min >60 If >60 mL/min >60 17 BUN/Creat 11.2 ratio Sodium 137 mmol/L Normal 136-145 Potassium 3.9 mmol/L Normal 3.5-5.1 Chloride 103 mmol/L Normal 98-107 Carbon Dioxide 29 mmol/L Normal 21-32 Anion Gap 5 mEq/L Low 8-16 Calcium 8.8 mg/dL Normal 8.5-10.1 Total Protein 7.4 g/dL Normal 6.4-8.2 Albumin 3.6 g/dL Normal 3.4-5.0 Globulin 3.8 g/dL Normal 1.9-4.3 Alb/Glob 0.9 ratio Bilirubin,Total 1.1 mg/dL High 0.2-1.0 Sgot/Ast 49 U/L High 15-37 SGPT/Alt 54 U/L Normal 12-78 Alkaline Phosphatase 126 U/L High 45-117 CBS W/Automated 12/22/2018 [facility] White Blood 3.4 K/uL Normal 3.1-10.[address] Count [place], [place] [id number] [phone] Red Blood Count 4.15 M/uL Normal 3.90-5.40 Hemoglobin 12.8 gm/dL Normal 11.6-15.8 Hematocrit 36.6 % Normal 36.0-46.1 Mean Cell Volume 88.2 fl Normal 80.9-99.0 Mean Corpuscular HGB 30.8 pg Normal 25.9-32.7 Mean Corpuscular HGB Conc 35.0 g/dL High 30.8-34.3 Platelet Count 96 K/uL Low 155-360 Red Cell Distri Width SD 45.5 fl Normal 36-47 Red Cell Distri Width %CV 14.1 % Normal 11.7-14.4 Mean Platelet Volume 11.4 fl Normal 8.9-12.4 Neut% 69.8 % Normal 40.4-72.8 Lymph % 18.3 % Low 20.0-42.0 Christian % 8.0 % Normal 4.3-13.2 Eo% 2.4 % Normal 0.0-6.6 Bas% 1.2 % High 0.0-1.1 Immature Grans 0.3 % Normal 0.0-5.0 NRBC % 0.0 /100WBC < 10/ 100 WBC Neut# 2.36 K/uL Normal 1.8-7.0 Lymph # 0.62 K/uL Low 1.0-4.0 Christian # 0.27 K/uL Low 0.3-0.9 Eos # 0.08 K/uL Normal 0.0-0.5 Baso # 0.04 K/uL Normal 0.0-0.1 Immature Grans Absolute 0.01 K/uL NRBC # 0.00 K/uL Microalbumin,Random 10/08/2018 [facility] Microalbumin,Urine 89.5 < [address] mg/L 20.0 [place], [place] [id number] [phone] Glycohemoglobin A1c 10/08/2018 [facility] Glycohemoglobin 8.1 % High 4.2-[address] (A1c) .3 [place], [place] [address] [phone] eAG 186 mg/dL Comprehensive Metabolic 10/08/2018 [facility] Glucose 229 mg/dL High 74-[address] [place], [place] [address] [phone] BUN 10 mg/dL Normal 7-18 Creatinine 0.7 mg/dL Normal 0.6-1.3 Glom Filtration Rate, Estimate >60 mL/min >60 If >60 mL/min >60 20 BUN/Creat 14.2 ratio Sodium 139 mmol/L Normal 136-145 Potassium 3.9 mmol/L Normal 3.5-5.1 Chloride 105 mmol/L Normal 98-107 Carbon Dioxide 28 mmol/L Normal 21-32 Anion Gap 6 mEq/L Low 8-16 Calcium 8.7 mg/dL Normal 8.5-10.1 Total Protein 7.7 g/dL Normal 6.4-8.2 Albumin 3.4 g/dL Normal 3.4-5.0 Globulin 4.3 g/dL Normal 1.9-4.3 Alb/Glob 0.8 ratio Bilirubin,Total 0.7 mg/dL Normal 0.2-1.0 Sgot/Ast 33 U/L Normal 15-37 SGPT/Alt 41 U/L Normal 12-78 Alkaline Phosphatase 97 U/L Normal 45-117 Reflex add FT3? Y Reflex add FT4? Y LDL Cholesterol 10/08/2018 [facility] Cholesterol 221 mg/dL High <200 21 Profile [address] [place] [address] [phone] Triglycerides 94 mg/dL <150 22 HDL Cholesterol 53 mg/dL >40 23 LDL-Cholesterol 149 mg/dL < 100 24 Reflex add FT3? Y Reflex add FT4? Y TSH Reflex 10/08/2018 [facility] Thyroid Stim 1.69 uIU/mL Normal 0.30-4.20 FT4 And/Or [address] [facility] Hormone FT3 [place], [place] [id number] [phone] Reflex add FT3? Y Reflex add FT4? Y Free T4 10/08/2018 [facility] Free T4 1.40 ng/dL Normal 0.76-1.46 [address] [place] [address] [phone] Reflex add FT3? Y Reflex add FT4? Y 1 E11.9 2 NO GROWTH: FINAL REPORT 3 CULTURE TO FOLLOW 4 E11.9 E78.2 E03.9 5 Note: Persistent reduction for 3 months or more in an eGFR <60 mL/min/1.73 m2 defines CKD. Patients with eGFR values >/=60 mL/min/1.73 m2 may also have CKD if evidence of persistent proteinuria is present. The original MDRD equation for estimated GFR is not valid for patients less than 18 years of age. Additional information may be found at www.kdoqi.org. 6 Elevated levels of HbA1c suggest the need for more aggressive treatment of glycemia. The [place] Diabetes Association recommends that a primary goal of therapy should be a HbA1c of <7% and that physicians should re-evaluate the treatment regimen in patients with HbA1c values consistently >8%. 7 Reference Guidelines*: Desirable: ........... < 200 mg/dL Borderline High: ..... 200-239 mg/dL High: ................ >= 240 mg/dL * The National Cholesterol Education Program (NCEP) 8 Reference Guidelines*: Normal: ............. < 150 mg/dL Borderline High: .... 150-199 mg/dL High: ............... 200-499 mg/dL Very High: .......... > 500 mg/dL * Source: National Cholesterol Education Program (NCEP) 9 Reference Guidelines*: Low HDL: ..... < 40 mg/dL Normal: ..... 40-60 mg/dL Desirable: ... > 60 mg/dL *The National Cholesterol Education Program(NCEP) 10 Reference Guidelines*: Optimal:........... <100 mg/dL Near Optimal....... 100-129 mg/dL Borderline High.... 130-159 mg/dL High............... 160-189 mg/dL Very High.......... >=190 mg/dL * Source: National Cholesterol Education Program (NCEP) 11 D69.6 K74.69 12 Instrument flagged sample for slide review. Less than 10% Bands seen, no other immature WBC's seen. RBC morphology essentially normal. Platelet estimate = Slight Decrease [address] GARY [address] GARY 15 Vitamin D deficiency has been defined by the [place] of Medicine and an Endocrine Society practice guideline as a level of serum 25-OH vitamin D less than 20 ng/mL (1,2). The Endocrine Society went on to further define vitamin D insufficiency as a level between 21 and 29 ng/mL (2). 1. IOM ([place] of Medicine). 2010. Dietary reference intakes for calcium and D. [place]: The National Academies Press. 2. Humphrey MF, Dora TY, Michael GOMEZ, et al. Evaluation, treatment, and prevention of vitamin D deficiency: an Endocrine Society clinical practice guideline. JCEM. 2010; 96(7):1911-30. Performed at: RN - [facility] [address] [id number] [employer] Operator: Rena Griffin MD, Phone: [phone] 16 Slide on file in lab 17 Note: Persistent reduction for 3 months or more in an eGFR <60 mL/min/1.73 m2 defines CKD. Patients with eGFR values >/=60 mL/min/1.73 m2 may also have CKD if evidence of persistent proteinuria is present. The original MDRD equation for estimated GFR is not valid for patients less than 18 years of age. Additional information may be found at www.kdoqi.org. 18 E11.9 E78.2 E03.9 K75.81 19 Elevated levels of HbA1c suggest the need for more aggressive treatment of glycemia. The [place] Diabetes Association recommends that a primary goal of therapy should be a HbA1c of <7% and that physicians should re-evaluate the treatment regimen in patients with HbA1c values consistently >8%. 20 Note: Persistent reduction for 3 months or more in an eGFR <60 mL/min/1.73 m2 defines CKD. Patients with eGFR values >/=60 mL/min/1.73 m2 may also have CKD if evidence of persistent proteinuria is present. The original MDRD equation for estimated GFR is not valid for patients less than 18 years of age. Additional information may be found at www.kdoqi.org. 21 Reference Guidelines*: Desirable: ........... < 200 mg/dL Borderline High: ..... 200-239 mg/dL High: ................ >= 240 mg/dL * The National Cholesterol Education Program (NCEP) 22 Reference Guidelines*: Normal: ............. < 150 mg/dL Borderline High: .... 150-199 mg/dL High: ............... 200-499 mg/dL Very High: .......... > 500 mg/dL * Source: National Cholesterol Education Program (NCEP) 23 Reference Guidelines*: Low HDL: ..... < 40 mg/dL Normal: ..... 40-60 mg/dL Desirable: ... > 60 mg/dL *The National Cholesterol Education Program(NCEP) 24 Reference Guidelines*: Optimal:........... <100 mg/dL Near Optimal....... 100-129 mg/dL Borderline High.... 130-159 mg/dL High............... 160-189 mg/dL Very High.......... >=190 mg/dL * Source: National Cholesterol Education Program (NCEP) Procedures Date Code Description Status 11/03/2018 33227 ECHO [employer]an[employer] Performance Continuous Completed Electrocardio 11/01/2018 69473453 Mammogram Completed 09/23/2017 [id number] Colonoscopy Completed 07/01/2017 897439288 Diabetic Foot Exam Completed 11/10/2009 [id number] Colonoscopy Completed 07/03/2001 [id number] Colonoscopy Completed Medical Devices Description No Information Available Encounters Type Date Location Provider Dx Diagnosis Office Visit 02/22/2019 [facility] Millie E11.9 Type 2 diabetes 11:30a Office MD Briana mellitus without complications Z91.19 Patient's noncompliance w oth medical treatment and regimen Office Visit 02/08/2019 [facility] E11.9 Type 2 diabetes 9:50a Office MD Briana mellitus without complications Z91.11 Patient's noncompliance with dietary regimen Z91.14 Patient's other noncompliance with medication regimen W01.0xxA Fall same lev from slip/trip w/o strike against object, init Office Visit 01/01/2019 Oncology Theresa, Christopher9.6 Thrombocytopenia, 10:00a Office Emely, DO unspecified K74.69 Other cirrhosis of liver E55.9 Vitamin D deficiency, unspecified Office Visit 10/13/2018 11:40a Primary Care Dominique Bernabe, E11.9 Type 2 diabetes Office mellitus without complications M48.061 Spinal stenosis, lumbar region without neurogenic srini K75.81 Nonalcoholic steatohepatitis (Betts) I10 Essential (primary) hypertension E78.2 Mixed hyperlipidemia E03.9 Hypothyroidism, unspecified R93.7 Abnormal findings on diagnostic imaging of prt ms sys R06.02 Shortness of breath Office Visit 08/31/2018 3:25p Podiatry Office Efrain Braden, E11.9 Type 2 diabetes DPM mellitus without complications M21.611 Bunion of right foot Assessments Date Code Description Provider 02/22/2019 E11.9 Type 2 diabetes mellitus without Briana Pinto MD complications 02/22/2019 Z91.19 Patient's noncompliance with other Briana Pinto MD medical treatment and regimen 02/08/2019 E11.9 Type 2 diabetes mellitus without Briana Pinto MD complications 02/08/2019 Z91.11 Noncompliance with dietary regimen Briana Pinto MD 02/08/2019 Z91.14 Noncompliance with medication regimen Briana Pinto MD 02/08/2019 W01.0xxA Fall on same level from slipping, Briana Pinto MD tripping and stumbling without subsequent striking against object, initial encounter 01/01/2019 D69.6 Thrombocytopenia, unspecified Emely Gary, DO 01/01/2019 K74.69 Other cirrhosis of liver Emely Gary, DO 01/01/2019 E55.9 Vitamin D deficiency Emely Gary, DO 12/22/2018 D69.6 Thrombocytopenia, unspecified Emely Gary, DO 12/22/2018 D69.6 Thrombocytopenia, unspecified Oncology Nurse 12/22/2018 K74.69 Other cirrhosis of liver Emely Gary, DO 12/22/2018 K74.69 Other cirrhosis of liver Oncology Nurse 11/03/2018 R06.02 Shortness of breath Nery Dudley MD 11/03/2018 I10 Essential (primary) hypertension Nery Dudley MD 10/13/2018 E11.9 Type 2 diabetes mellitus without Dominique Bernabe MD complications 10/13/2018 M48.061 Spinal stenosis, lumbar region without Dominique Bernabe MD neurogenic claudicati 10/13/2018 K75.81 Nonalcoholic steatohepatitis (Betts) Dominique Bernabe MD 10/13/2018 I10 Essential (primary) hypertension Dominique Bernabe MD 10/13/2018 E78.2 Mixed hyperlipidemia Dominique Bernabe MD 10/13/2018 E03.9 Hypothyroidism, unspecified Dominique Bernabe MD 10/13/2018 R93.7 Abnormal findings on diagnostic Dominique Bernabe MD imaging of other parts of musculoskeletal system 10/13/2018 R06.02 Shortness of breath Dominique Bernabe MD 08/31/2018 E11.9 Type 2 diabetes mellitus without Efrain Braden DPM complications 08/31/2018 M21.611 Bunion of right foot Efrain Braden DPM Plan of Treatment Future Appointment(s):05/11/2019 10:50 am - Briana Pinto MD at Primary [facility] Bijjue5809/07/2019 11:25 am - Efrain Braden DPM at Podiatry Atjcdr3002/22/2019 - Briana Pinto MDE11.9 Type 2 diabetes mellitus without hgblwyrrklxnrR43.19 Patient's noncompliance with other medical treatment and regimen Functional Status Functional Condition Comment Date Status Independent with all ADL's Active Independent with all IADL's Active Mental Status Description No Information Available Referrals Description No Information Available
[2019-04-16 10:59] VITALS: BP 132/53
--- NOTE | 2019-04-16 11:43 | UC ---
Respiratory Complaint HPI - HPI Summary HPI Summary: 74 yo diabetic with 3 day history of malaise, increased cough with wheeze, and shortness of breath. She has been using albuterol at home several times per day with some relief. No associated sore throat or sore ears, began with lower respiratory symptoms. Past hx of bronchitis. - History of Current Complaint Chief Complaint: UCGeneralIllness Stated Complaint: congestion, cough Time Seen by Provider: 04/16/19 11:36 Hx Obtained From: Patient Hx Last Menstrual Period: age 51 Onset/Duration: Sudden Onset Timing: Intermittent Episodes Severity Initially: Moderate Severity Currently: Moderate Pain Intensity: 0 Character: Cough: Nonproductive Aggravating Factors: Exertion, Deep Breaths Alleviating Factors: Bronchodilator Associated Signs And Symptoms: Positive: Dyspnea, Wheezing - Risk Factors Pulmonary Embolism Risk Factors: Negative Cardiac Risk Factors: Hypertension, Diabetes, Elevated Lipids Pseudomonas Risk Factors: Negative Tuberculosis Risk Factors: Negative - Allergies/Home Medications Allergies/Adverse Reactions: Allergies Allergy/AdvReac Type Severity Reaction Status Date / Time Adhesive Tape Allergy RED RASH Verified 04/16/19 10:59 AVOCODOS Allergy Vomiting Uncoded 04/16/19 10:59 BROCCOLI Allergy Vomiting Uncoded 04/16/19 10:59 CANTALOUPE Allergy Vomiting Uncoded 04/16/19 10:59 EGGPLANT Allergy Vomiting Uncoded 04/16/19 10:59 PET DANDER Allergy BREATHING, Uncoded 04/16/19 10:59 SINUS, RUNNY EYES, ASTHMA SX raw honey Allergy VIOLENT Uncoded 04/16/19 10:59 VOMITING, CRAMPS, SENSITIVE TO ANESTHESIA Allergy SENSITIVE Uncoded 04/16/19 10:59 TO AMOUNT SHELLFISH Allergy VIOLENT Uncoded 04/16/19 10:59 VOMITING Home Medications: Home Medications Rosuvastatin Calcium [Crestor] 5 mg PO EVERY OTHER DAY 04/16/19 [History Confirmed 04/16/19] Vitamin E CAP* 200 unit PO DAILY 04/16/19 [History Confirmed 04/16/19] PMH/Surg Hx/FS Hx/Imm Hx Endocrine History: Diabetes, Dyslipidemia Cardiovascular History: Hypertension - Surgical History Surgical History: Yes Surgery Procedure, Year, and Place: 1971 TONSILLECTOMY,. 1976, 1978-2 [place] [place] DEVIATED SEPTUM [place]PAIR, [facility] [place]. 2008-BUNIONECTOMY- [facility], [place]. 2012-PARATHYROIDECTOMY, [facility]. 2013 REPAIR OF "BOTCHED" SURGERY ON PARATHYROID, (THYROPLASTY IMPLANT TYPE 1), [facility] - Family History Known Family History: Positive: Hypertension, Diabetes - Social History Occupation: Retired Lives: Alone Alcohol Use: None Substance Use Type: None Smoking Status (MU): Former Smoker Amount Used/How Often: 0.5-.75 PPD 25-30 YEARS When Did the Patient Quit Smoking/Using Tobacco: 2002 Review of Systems All Other Systems Reviewed And Are Negative: Yes Constitutional: Positive: Fatigue Skin: Positive: Negative Eyes: Positive: Negative ENT: Positive: Negative Respiratory: Positive: Shortness Of Breath, Cough, Other - wheezing Cardiovascular: Negative: Palpitations, Chest Pain Gastrointestinal: Positive: Negative Genitourinary: Positive: Negative, Vaginal/Penile Itching Neurovascular: Positive: Negative Musculoskeletal: Positive: Negative Neurological/Mental Status: Positive: Negative Psychological: Positive: Negative Is Patient Immunocompromised?: No Physical Exam Triage Information Reviewed: Yes Appearance: Ill-Appearing - looks mildly unwell, in no respiratory distress. Vital Signs: Initial Vital Signs Temp 98.7 F 04/16/19 10:52 Pulse 68 04/16/19 10:52 Resp 20 04/16/19 10:52 BP 132/53 04/16/19 10:52 Pulse Ox 98 04/16/19 10:52 ENT: Positive: Pharynx normal Neck: Positive: Supple, Nontender, No Lymphadenopathy Respiratory: Positive: No respiratory distress, No accessory muscle use, Crackles - dry crackles both lung bases.. Negative: Wheezing Cardiovascular: Positive: RRR, No Murmur Musculoskeletal Exam: Normal Neurological Exam: Normal Psychological Exam: Normal Skin Exam: Normal Diagnostics - Radiology No standard instances Radiology Interpretation Completed By: Radiologist - Patient Name: BRITTNEE ASTORGA Medical Record#: [id number] Ordering Physician: Ty Brown NP Acct.#: [id number] : Age: 74 Sex: F Location: [facility] Exam Date: 04/16/19 1117 ADM Status: REG ER Order Information: CHEST PA & LAT 2 VWS Accession Number: [id number] CPT: 69653 INDICATION: Cough and shortness of breath. COMPARISON: Comparison is made with a prior study from June 30, 2016. TECHNIQUE: Dual- energy PA and lateral views of the chest were obtained. FINDINGS: The heart is within normal limits in size. Mediastinal and hilar contours appear within normal limits. The lungs are underinflated and grossly clear. No pleural effusion is seen. IMPRESSION: NO EVIDENCE FOR ACTIVE CARDIOPULMONARY DISEASE. < Electronically signed by Pool Claudio MD in OV> 04/16/19 1146 Dictated By: Pool Claudio MD Dictated Date/Time: 04/16/19 1145 Transcribed Date/Time: 114 Copy to: CC:Ty Brown NP; Kenzie Asher MD; No Primary Care Phys,NOPCP Imaging [facility] [address] [address] ph ([phone]) ph ([phone]) ph ( [phone]) This report is only to be considered final once signed by the Provider(s) as displayed in the "<Electronically Signed by >" field (s). Absence of a signature indicates the report is in a draft status and still needs to be finalized. In the event this document was created by someone other than the signing Provider, the individual initiating the document will be listed in the "Entered by:" or "Dictated by:" richard. 1 of 1 Respiratory Course/Dx - Course Course Of Treatment: No active pneumonia, but has basilar crackles, malaise and fatigue. She has used both albuterol and advair in the past with improvement in wheezing. Given diabetes and severity of cough, will add amoxicillin for coverage. - Differential Dx/Diagnosis Differential Diagnosis/HQI/PQRI: Asthma, Bronchitis, Lower Resp Infection Provider Diagnosis: Lower respiratory tract infection Discharge ED - Sign-Out/Discharge Documenting (check all that apply): Patient Departure All imaging exams completed and their final reports reviewed: No Studies - Discharge Plan Condition: Stable Disposition: HOME Prescriptions: Albuterol HFA INHALER* [Ventolin HFA Inhaler*] 2 puff INH Q6H PRN #1 mdi PRN Reason: Wheezing Amoxicillin PO (*) [Amoxicillin 875 MG (*)] 875 mg PO BID #14 tab Patient Education Materials: Acute Bronchitis (ED) Referrals: No Primary Care Phys,NOPCP [Primary Care Provider] - Additional Instructions: Because of the recurrent cough and wheezing, you have been prescribed amoxicillin because of risk of progression to pneumonia. Use advair as discussed to help with wheeze and cough. A new albuterol prescription has been sent; you can use 2 puffs every 6 hours to help with cough and wheeze. - Billing Disposition and Condition Condition: STABLE Disposition: Home
== END 2019-04-16 12:27 | disposition home or self-care (01) ==
LOC: UCCORT 10:22
DX: J22 Unspecified acute lower respiratory infection (principal); E11.9 Type 2 diabetes mellitus without complications; I10 Essential (primary) hypertension; Z91.013 Allergy to seafood; Z91.018 Allergy to other foods; Z88.4 Allergy status to anesthetic agent; Z91.09 Other allergy status, other than to drugs and biological substances; Z87.891 Personal history of nicotine dependence
CPT/HCPCS: 71046; 99212; G0463